=== PATIENT | female | born 1940 | race Caucasian/White ===

== ENCOUNTER 2017-07-10 12:55 | Emergency (ER) | payer OTHER ==
[~2017-07-10] VITALS: Ht 154.9 cm; Wt 74.4 kg
[~2017-07-10 12:55] MED LIST: ASPIR 8181 MG; BENAZEPRIL HYDR40 M1 PO; COL100 PO; EFFEXOR-XR150 MG; LANTUS SOLOS100 U/M1 SQ; LIPI20; METFORMIN HCL1000 MG PO; NORCO1 TA2 PO
[2017-07-10 13:14] VITALS: Ht 154.9 cm; Wt 74.4 kg
[2017-07-10 15:51] VITALS: BP 116/85
== END 2017-07-10 15:51 | disposition home or self-care (01) ==
LOC: ED 12:55
DX: K59.00 Constipation, unspecified (principal); K56.7 Ileus, unspecified; I10 Essential (primary) hypertension; E11.9 Type 2 diabetes mellitus without complications; E78.00 Pure hypercholesterolemia, unspecified; Z88.0 Allergy status to penicillin